=== PATIENT | male | born 1965 | race Caucasian/White ===

== ENCOUNTER 2023-03-25 15:51 | Emergency (ER) | payer BC, SELFPAY ==
[2023-03-25 15:59] VITALS: BP 148/106; PULSE 77; RESP 18; TEMP 36.9; O2SAT 95; BMI 24.4
[2023-03-25 16:00] VITALS: BP 148/106; PULSE 75; RESP 18; TEMP 36.9; O2SAT 95
--- OUTSIDE RECORDS SUMMARY | 2023-03-25 16:35 | XMS_ITS | Referral Summary ---
Author Name Unknown Organization [facility] Address [address] [place] [address] Care Team Providers Care Director Inpatient Headache Program Name Role Phone Unavailable Primary Care Provider Unavailabl e Allergies Active Allergy Reactions Criticality Noted Date Comments Meperidine Hcl 03/27/2002 Medications Medication Sig Dispensed Refills Start Date End Date Status SEREVENT 21 MCG/ACT IN AERS 2 puffs BID (Twice per day) for asthma 0 Active SERZONE 200 MG OR TABS 1 TABLET TWICE DAILY 0 Acti ve SOMA 350 MG OR TABS 1 TABLET 4 TIMES DAILY NEEDED 56 1 02/09/2003 Active Additional Information Patient not taking.Reported on 02/19/2019 VICODIN 5-500 MG OR TABS 1 TABLET EVERY 4 TO 6 HOURS NEEDED 28 0 04/02/2003 Active PERCOCET 5-325 MG OR TABS deny 0 0 05/15/2003 Active Additional Information Patient not taking.Reported on 02/19/2019 buPROPion (WELLBUTRIN XL) 300 MG 24 hr tablet Take 300 mg by mouth every morning 0 Active DULoxetine (CYMBALTA) 20 MG capsule Take 20 mg by mouth 2 times daily 0 Active Active Problems Problem Noted Date Diagnosed Date 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 Provider to review Other anxiety states 03/27/2002 Social History Tobacco Use Types Packs/Day Years Used Date Smoking Tobacco: Never Smokeless Tobacco: Never Alcohol Use Standard Drinks/Week Comments Yes 0 (1 standard drink = 0.6 oz pur e alcohol) moderate PHQ-2 Answer Date Recorded PHQ-2 Score 0 02/19/2019 Sex and Gender Information Value Date Recorded Sex Assigned at Not on file Gender Identity Not on file Sexual Orientation Not on file Last Filed Vital Signs Vital Sign Reading Time Taken Comments Blood Pressure 122/88 04/02/2003 2:30 PM AIRPLANE AND ENGINE INSPECTOR Pulse 88 04/02/2003 2:30 PM AIRPLANE AND ENGINE INSPECTOR Temperature - - Respiratory Rate 18 04/02/2003 2:30 PM AIRPLANE AND ENGINE INSPECTOR Oxygen Saturation - - Inhaled Oxygen Concentration - - Weight 83.5 kg (184 lb) 02/19/2019 8:10 AM AIRPLANE AND ENGINE INSPECTOR Height 182.9 cm (6') 02/19/2019 8:10 AM AIRPLANE AND ENGINE INSPECTOR Body Mass Index 24.95 02/19/2019 8:10 AM AIRPLANE AND ENGINE INSPECTOR Plan of Treatment Not on file
--- OUTSIDE RECORDS SUMMARY | 2023-03-25 16:35 | XMS_ITS | Clinical Summary ---
Author Name Unknown Organization [facility] Address [address] [place] [address] Care Team Providers Care Olericulturist Name Role Phone Unassigned, Provider Primary Care Provider Unava ilable Source Comments You are receiving this document as you are listed as the primary care provider,follow-up provider, or the patient has been referred to you for consultation.This is in compliance with the Medicare and[facility] E[facility]centive [facility],which states Providers who transition their patient to another setting of careor provider of care or refers their patient to another provider of care shouldprovide summary care record for each transition of care or referral. [facility] Allergies No known active allergies Medications No known medications Active Problems No known active problems Immunizations Name Administration Dates Next Due Tdap 03/28/2018 Social History Tobacco Use Types Packs/Day Years Used Date Smoking Tobacco: Never Smokeless Tobacco: Never Sex and Gender Information Value Date Recorded Sex Assigned at Not on file Gender Identity Not on file Sexual Orientation Not on file Last Filed Vital Signs Vital Sign Reading Time Taken Comments Blood Pressure 156/95 03/28/2018 10:26 AM RAIL EXPRESS CLERK Pulse 64 03/28/2018 10:26 AM RAIL EXPRESS CLERK Temperature 36.8 ??C (98.2 ??F) 03/28/2018 10:[address] Respiratory Rate 16 03/28/2018 10:26 AM RAIL EXPRESS CLERK Oxygen Saturation 98% 03/28/2018 10:26 AM RAIL EXPRESS CLERK Inhaled Oxygen Concentration - - Weight - - Height - - Body Mass Index - - Plan of Treatment Health Maintenance Due Date Last Done Comments Colon Cancer Screening Plan Due 1967 Hep C Screening (Preventive Services) 1967 HepB (1) 1967 PSA Screening Discussion 1967 COVID-19 Vaccine (#1) 03/08/1968 HIV Screening (Preventive Services) 1983 Adult Preventive Visit 09/06/1985 Cholesterol 09/06/2002 Zoster/Shingles (1 of 2) 09/06/2017 Influenza (#1) 2022 DTaP/Tdap/Td (2 - Tdap) 03/28/2028 03/28/2018 HepA Aged Out No longer eligi ble based on patient's age to complete this topic Hib Aged Out No longer eligi ble based on patient's age to complete this topic IPV (Polio) Aged Out No longer eligi ble based on patient's age to complete this topic MCV4 Aged Out No longer eligi ble based on patient's age to complete this topic Pneumococcal Aged Out No longer eligi ble based on patient's age to complete this topic Care Teams Olericulturist Relationship Specialty Start Date End Date Unassigned, Provider [address] [place] [address] PCP - General 05/13/00
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
--- OUTSIDE RECORDS SUMMARY | 2023-03-25 16:35 | XMS_ITS | Clinical Summary ---
Author Name Unknown Organization [facility] Address [address] [place] [address]. [place] [address] Care Team Providers Care Regional Intermodal Truck Driver Name Role Phone Unavailable Primary Care Provider [...] Provider to review Other anxiety states 03/27/2002 Family History Medical History Relation Comments Anxiety Disorder Father Cancer Father Prostate Dementia Father Cancer Mother Breast Relation Status Comments Brother Alive Daughter Alive Father Alive Maternal Grandfather Alive Maternal Grandmother Alive Mother Alive Paternal Grandfather Alive Paternal Grandmother Alive Sister Alive Son Alive Social History Tobacco Use Types Packs/Day Years [...] Comments Blood Pressure 122/88 04/02/2003 2:30 PM BANQUET MANAGER Pulse 88 04/02/2003 2:30 PM BANQUET MANAGER Temperature - - Respiratory Rate 18 04/02/2003 2:30 PM BANQUET MANAGER Oxygen Saturation - - Inhaled Oxygen Concentration - - Weight 83.5 kg (184 lb) 02/19/2019 8:10 AM BANQUET MANAGER Height 182.9 cm (6') 02/19/2019 8:10 AM BANQUET MANAGER Body Mass Index 24.95 02/19/2019 8:10 AM BANQUET MANAGER Plan of Treatment Not on file
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
[2023-03-25] MEDS: TETANUS/DIPHTH/PERTUSSIS 0.5 ML SYRINGE IM (17:01)
[2023-03-25] MEDS: lidocaine HCL 2 % MULTIDOSE 20 ML VIAL INJECTION (17:05)
[2023-03-25 17:17] VITALS: BP 129/98; PULSE 88; RESP 16; TEMP 37
== END 2023-03-25 17:10 | disposition home or self-care (01) ==
PROVIDERS: Emergency Provider Family Medicine; PCP Family Medicine
DX: S61.211A Laceration without foreign body of left index finger without damage to nail, initial encounter (principal); W26.0XXA Contact with knife, initial encounter; Z23 Encounter for immunization
CPT/HCPCS: 12001; 90471; 90715; 99283; 99284

== ENCOUNTER 2023-09-10 15:44 | Outpatient (CLI) | payer BC, SELFPAY ==
--- OUTSIDE RECORDS SUMMARY | 2023-09-10 15:46 | XMS_ITS | Clinical Summary ---
Author Organization [facility] Address [address] [place] [address]. [place] [address] Care Team Providers Care Rodbuster Name Role Phone Unavailable Primary Care Provider Unavailabl e Allergies Active Allergy Reactions Criticality Noted Date Comments Meperidine Hcl 03/27/2002 Medications Medication Sig Dispensed Refills Start Date End Date Status SEREVENT 21 MCG/ACT IN AERS 2 puffs BID (Twice per day) for asthma Active SERZONE 200 MG OR TABS 1 TABLET TWICE DAILY Acti ve SOMA 350 MG OR TABS [...] Take 300 mg by mouth every morning Active DULoxetine (CYMBALTA) 20 MG capsule Take 20 mg by mouth 2 times daily Active Active Problems Problem Noted Date Diagnosed [...] Comments Blood Pressure 122/88 04/02/2003 2:30 PM HAIRSPRING SETTER Pulse 88 04/02/2003 2:30 PM HAIRSPRING SETTER Temperature - - Respiratory Rate 18 04/02/2003 2:30 PM HAIRSPRING SETTER Oxygen Saturation - - Inhaled Oxygen Concentration - - Weight 83.5 kg (184 lb) 02/19/2019 8:10 AM HAIRSPRING SETTER Height 182.9 cm (6') 02/19/2019 8:10 AM HAIRSPRING SETTER Body Mass Index 24.95 02/19/2019 8:10 AM HAIRSPRING SETTER Plan of Treatment Not on file
--- OUTSIDE RECORDS SUMMARY | 2023-09-10 15:46 | XMS_ITS | Clinical Summary ---
Author Organization [facility] Address [address] [place] [address] Care Team Providers Care Prick Stitcher Name Role Phone Unassigned, Provider Primary Care Provider Unava ilable Source Comments You are receiving this document as you are listed as the primary care provider,follow-up provider, or the patient has been referred to you for consultation.This is in compliance with the Medicare and[facility] EHR Incentive Program,which states Providers who transition [...] Comments Blood Pressure 156/95 03/28/2018 10:26 AM INSULATION CUTTER Pulse 64 03/28/2018 10:26 AM INSULATION CUTTER Temperature 36.8 ??C (98.2 ??F) 03/28/2018 10:[address] Respiratory Rate 16 03/28/2018 10:26 AM INSULATION CUTTER Oxygen Saturation 98% 03/28/2018 10:26 AM INSULATION CUTTER Inhaled Oxygen Concentration - - Weight - - Height - - Body Mass Index - - Plan of Treatment Health Maintenance Due Date Last Done Comments Colon Cancer Screening Plan Due 1967 Hep C Screening (Preventive Services) 1967 PSA Screening Discussion 1967 HIV Screening (Preventive Services) 1983 Adult Preventive Visit 09/06/1985 HepB (1) 09/06/1986 Cholesterol 09/06/2002 Zoster/Shingles (1 of 2) 09/06/2017 COVID-19 Vaccine (1 - 2022-2 4 season) 2022 Influenza (#1) 2023 DTaP/Tdap/Td (2 - Tdap) 03/28/2028 03/28/2018 HepA [...] age to complete this topic Care Teams Prick Stitcher Relationship Specialty Start Date End Date Unassigned, Provider [address] [place] [address] PCP - General 05/13/00
--- OUTSIDE RECORDS SUMMARY | 2023-09-10 15:46 | XMS_ITS | Referral Summary ---
Author Organization [facility] Address [address] [place] [address]. [place] [address] Care Team Providers Care Traffic Control Signaler Name Role Phone Unavailable Primary Care Provider [...] Comments Blood Pressure 122/88 04/02/2003 2:30 PM PIPE JEEPER Pulse 88 04/02/2003 2:30 PM PIPE JEEPER Temperature - - Respiratory Rate 18 04/02/2003 2:30 PM PIPE JEEPER Oxygen Saturation - - Inhaled Oxygen Concentration - - Weight 83.5 kg (184 lb) 02/19/2019 8:10 AM PIPE JEEPER Height 182.9 cm (6') 02/19/2019 8:10 AM PIPE JEEPER Body Mass Index 24.95 02/19/2019 8:10 AM PIPE JEEPER Plan of Treatment Not on file
[2023-09-10 16:51] LABS: Mononuclear WBC Body Fluid* 49 %; Polynuclear WBC Body Fluid* 51 %; RBC, Body Fluid* 890000 Cells/uL; WBC, Body Fluid* 938 Cells/uL
[2023-09-10 16:52] LABS: BF Clarity* Cloudy; BF Color Grossly Bloody; BF Total Volume* 1.5
== END 2023-09-10 15:45 | disposition home or self-care (01) ==
PROVIDERS: PCP Family Medicine; Visit Provider Internal Medicine
DX: M70.22 Olecranon bursitis, left elbow (principal)
CPT/HCPCS: 87070; 89051

== ENCOUNTER 2023-09-17 08:20 | Outpatient (CLI) | payer BC, SELFPAY ==
--- OUTSIDE RECORDS SUMMARY | 2023-09-17 15:25 | XMS_ITS | Clinical Summary ---
Author Organization [facility] Address [address], [place] [address] Care Team Providers Care Etymology Teacher Name Role Phone Unassigned, Provider Primary Care Provider Unava ilable Source Comments You are receiving this document as you are listed as the primary care provider,follow-up provider, or the patient has been referred to you for consultation.This is in compliance with the Medicare and[facility]centive [facility],which states Providers who [...] Comments Blood Pressure 156/95 03/28/2018 10:26 AM INSURANCE WRITER Pulse 64 03/28/2018 10:26 AM INSURANCE WRITER Temperature 36.8 ??C (98.2 ??F) 03/28/2018 10:[address] Respiratory Rate 16 03/28/2018 10:26 AM INSURANCE WRITER Oxygen Saturation 98% 03/28/2018 10:26 AM INSURANCE WRITER Inhaled Oxygen Concentration - - Weight - [...] age to complete this topic Care Teams Etymology Teacher Relationship Specialty Start Date End Date Unassigned, Provider [address] [place] [address] PCP - General 05/13/00
--- OUTSIDE RECORDS SUMMARY | 2023-09-17 15:25 | XMS_ITS | Referral Summary ---
Author Organization [facility] Address [address] [place] [address]. [place] [address] Care Team Providers Care Locomotive Repairer Diesel Name Role Phone Unavailable Primary Care Provider [...] Comments Blood Pressure 122/88 04/02/2003 2:30 PM LEARNING DISABLED TEACHER Pulse 88 04/02/2003 2:30 PM LEARNING DISABLED TEACHER Temperature - - Respiratory Rate 18 04/02/2003 2:30 PM LEARNING DISABLED TEACHER Oxygen Saturation - - Inhaled Oxygen Concentration - - Weight 83.5 kg (184 lb) 02/19/2019 8:10 AM LEARNING DISABLED TEACHER Height 182.9 cm (6') 02/19/2019 8:10 AM LEARNING DISABLED TEACHER Body Mass Index 24.95 02/19/2019 8:10 AM LEARNING DISABLED TEACHER Plan of Treatment Not on file
--- OUTSIDE RECORDS SUMMARY | 2023-09-17 15:25 | XMS_ITS | Clinical Summary ---
Author Organization [facility] Address [address] [place] [address]. [place] [address] Care Team Providers Care Sleep Lab Technologist Name Role Phone Unavailable Primary Care Provider [...] Comments Blood Pressure 122/88 04/02/2003 2:30 PM GEAR CUTTING MACHINE SET UP OPERATOR Pulse 88 04/02/2003 2:30 PM GEAR CUTTING MACHINE SET UP OPERATOR Temperature - - Respiratory Rate 18 04/02/2003 2:30 PM GEAR CUTTING MACHINE SET UP OPERATOR Oxygen Saturation - - Inhaled Oxygen Concentration - - Weight 83.5 kg (184 lb) 02/19/2019 8:10 AM GEAR CUTTING MACHINE SET UP OPERATOR Height 182.9 cm (6') 02/19/2019 8:10 AM GEAR CUTTING MACHINE SET UP OPERATOR Body Mass Index 24.95 02/19/2019 8:10 AM GEAR CUTTING MACHINE SET UP OPERATOR Plan of Treatment Not on file
== END 2023-09-17 08:21 | disposition home or self-care (01) ==
LOC: NFLDREF 15:22
PROVIDERS: PCP Family Medicine; Referring Provider Family Medicine; Visit Provider Family Medicine
DX: Z13.220 Encounter for screening for lipoid disorders (principal); Z12.5 Encounter for screening for malignant neoplasm of prostate; Z13.1 Encounter for screening for diabetes mellitus
CPT/HCPCS: 80061; 82947; G0103

== ENCOUNTER 2023-10-29 19:22 | Outpatient (CLI) | payer BC, SELFPAY ==
--- OUTSIDE RECORDS SUMMARY | 2023-10-29 19:25 | XMS_ITS | Referral Summary ---
Author Organization [facility] Address [address] [place] [address]. [place] [address] Care Team Providers Care Paper Bag Press Operator Name Role Phone Unavailable Primary Care Provider [...] Comments Blood Pressure 122/88 04/02/2003 2:30 PM SUPERVISOR DELIVERY DEPARTMENT Pulse 88 04/02/2003 2:30 PM SUPERVISOR DELIVERY DEPARTMENT Temperature - - Respiratory Rate 18 04/02/2003 2:30 PM SUPERVISOR DELIVERY DEPARTMENT Oxygen Saturation - - Inhaled Oxygen Concentration - - Weight 83.5 kg (184 lb) 02/19/2019 8:10 AM SUPERVISOR DELIVERY DEPARTMENT Height 182.9 cm (6') 02/19/2019 8:10 AM SUPERVISOR DELIVERY DEPARTMENT Body Mass Index 24.95 02/19/2019 8:10 AM SUPERVISOR DELIVERY DEPARTMENT Plan of Treatment Not on file
--- OUTSIDE RECORDS SUMMARY | 2023-10-29 19:25 | XMS_ITS | Clinical Summary ---
Author Organization [facility] Address [address] [place] [address]. [place] [address] Care Team Providers Care Security Police Officer Name Role Phone Unavailable Primary Care Provider [...] Comments Blood Pressure 122/88 04/02/2003 2:30 PM LICENSED MASSAGE THERAPIST Pulse 88 04/02/2003 2:30 PM LICENSED MASSAGE THERAPIST Temperature - - Respiratory Rate 18 04/02/2003 2:30 PM LICENSED MASSAGE THERAPIST Oxygen Saturation - - Inhaled Oxygen Concentration - - Weight 83.5 kg (184 lb) 02/19/2019 8:10 AM LICENSED MASSAGE THERAPIST Height 182.9 cm (6') 02/19/2019 8:10 AM LICENSED MASSAGE THERAPIST Body Mass Index 24.95 02/19/2019 8:10 AM LICENSED MASSAGE THERAPIST Plan of Treatment Not on file
--- OUTSIDE RECORDS SUMMARY | 2023-10-29 19:25 | XMS_ITS | Clinical Summary ---
Author Organization [facility] Address [address], [place] [address] Care Team Providers Care Soft Crab Shedder Name Role Phone Unassigned, Provider Primary Care Provider Unava ilable Source Comments You are receiving this document as you are listed as the primary care provider,follow-up provider, or the patient has been referred to you for consultation.This is in compliance with the Medicare and[facility] Incentive Program,which states Providers who [...] Comments Blood Pressure 156/95 03/28/2018 10:26 AM CLEANING PROFESSIONAL Pulse 64 03/28/2018 10:26 AM CLEANING PROFESSIONAL Temperature 36.8 ??C (98.2 ??F) 03/28/2018 10:[address] Respiratory Rate 16 03/28/2018 10:26 AM CLEANING PROFESSIONAL Oxygen Saturation 98% 03/28/2018 10:26 AM CLEANING PROFESSIONAL Inhaled Oxygen Concentration - - Weight - [...] age to complete this topic Care Teams Soft Crab Shedder Relationship Specialty Start Date End Date Unassigned, Provider [address] [place] [id number] PCP - General 05/13/00
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
--- NOTE | 2023-11-13 11:30 | W.PM.SLEEP ---
Sleep Study Details Details Interpreting Provider: Kely Date of Sleep Study: 10/29/23 Sleep Study Details: STUDY TYPE:? Home unattended ? BMI:? 25.4 ORDERING PROVIDER:? Kely INDICATION:? Concerns about sleep apnea ? SLEEP SUMMARY:? 555 minutes monitored RESPIRATORY SUMMARY:? AHI 25.4, supine 38.5, right lateral 10.3 Low oxygen 82 3.5% of study oxygen less than 90% Snoring 61.1% PERIODIC LIMB MOVEMENTS OF SLEEP:? Not recorded CARDIAC:? Range 50-100, mean 63.7 beats per minute IMPRESSION:? Moderate obstructive sleep apnea RECOMMENDATION: Treatment options include CPAP or dental appliance. CPAP is favored.
== END 2023-10-29 19:23 | disposition home or self-care (01) ==
LOC: SLEEP 19:23
PROVIDERS: PCP Family Medicine; Visit Provider Otolaryngology
DX: G47.33 Obstructive sleep apnea (adult) (pediatric) (principal)
CPT/HCPCS: 95806

== ENCOUNTER 2024-03-04 12:25 | Emergency (ER) | payer BC, SELFPAY ==
[2024-03-04 12:29] VITALS: BP 152/84; PULSE 66; RESP 14; TEMP 36.2; O2SAT 97; BMI 24.4
--- NOTE | 2024-03-04 12:54 | ED_ITS ---
HPI - Wound/Laceration General Chief Complaint: Laceration/Wound Stated Complaint: Lac on left thumb Time Seen by Provider: 03/04/24 12:28 History of Present Illness HPI narrative: This 58-year-old male comes in with a injury to his left thumb. He was using a knife and working on food when he accidentally injured the distal portion of his left thumb. He has a small avulsion injury with a flap of skin over the tip of his left thumb. There is no active bleeding. His tetanus was updated a year ago. Related Data Home Medications ?Medication ?Instructions ?Recorded ?Confirmed bupropion HCl 150 mg 24 hr tablet, 150 mg PO QAM 09/10/23 03/04/24 extended release (Wellbutrin XL) duloxetine 30 mg capsule,delayed 30 mg PO QDAY 09/10/23 03/04/24 release Allergies Allergy/AdvReac Type Severity Reaction Status Date / Time No Known Drug Allergies Allergy Verified 03/04/24 12:29 Review of Systems Status of ROS: Reports: 10 or more systems reviewed and unremarkable except as noted in History and below Narrative: Constitutional: No fevers, no weight gain or loss. Eyes: No discharge. No vision changes. HENT: No congestion, no sore throat, no ear pain. Cardiovascular: No chest pain, no palpitations. Respiratory: No shortness of breath, no wheezes, no cough. Gastrointestinal: No abdominal pain, no vomiting, no diarrhea. Genitourinary: No dysuria, no hematuria. Musculoskeletal: Normal range of motion. Skin: No rashes, no pruritis. Neurological: No dizziness, weakness, sensory change, speech change. Endo/Heme/Allergies: No bruising or bleeding. No polydipsia. Pysch: no suicidality, no anxiety, no insomnia. All other systems reviewed and are negative. [facility] Medical History (Updated 03/04/24 @ 12:58 by Matt John MD) Hearing loss ?H91.90 - Unspecified hearing loss, unspecified ear (ICD-10) Olecranon bursitis (09/2023) ?M70.20 - Olecranon bursitis, unspecified elbow (ICD-10) Social History Smoking Status: Never smoker How often do you have a drink containing alcohol: never AUDIT-C Alcohol total score: 0 Non-prescribed substance use: marijuana (any form) service: No Exam Narrative: Exam Narrative: Constitutional: Well-developed, well-nourished, no acute distress. HEENT: Normocephalic, atraumatic. Neck: Normal range of motion. Nontender. Supple. Heart: Intact distal pulses. Lungs: No chest discomfort. No wheezes, rhonchi, or rales. Abdomen: Nontender. Back: Normal range of motion. Extremities: Normal range of motion. Avulsion injury of the tip of the left thumb measuring less than 1 cm in diameter. There is a skin flap that is ov erlying the wound. Skin: Intact. No rash. Warm. No erythema or pallor. Neurologic: No altered sensation. No weakness. Alert and oriented. Psychiatric: No suicidality. No anxiety or depression. No insomnia. Nursing notes and vitals signs are reviewed. Const: Vital Signs, click to edit/add: Vital Signs - 24 hr 03/04/24 12:29 Temperature 97.2 F L Pulse Rate [Pulse Oximeter] 66 Respiratory Rate 14 Blood Pressure [Ri ght Upper Arm] 152/84 H Pulse Oximetry 97 Oxygen Delivery Me thod Room Air Course Vital Signs Vital signs: Initial Vital Signs Temperature 97.2 F L 03/04/24 12:29 Temperature Source Temporal Artery Scan 03/04/24 12:29 Pulse Rate 66 03/04/24 12:29 Respiratory Rate 14 03/04/24 12:29 Blood Pressure 152/84 H 03/04/24 12:29 Blood Pressure Mean 106 H 03/04/24 12:29 Blood Pressure Position Sitting 03/04/24 12:29 Pulse Oximetry 97 03/04/24 12:29 Oxygen Delivery Method Room Air 03/04/24 12:29 Vital Signs Temperature 97.2 F L 03/04/24 12:29 Pulse Rate 66 03/04/24 12:29 Respiratory Rate 14 03/04/24 12:29 Blood Pressure 152/84 H 03/04/24 12:29 Pulse Oximetry 97 03/04/24 12:29 Oxygen Delivery Method Room Air 03/04/24 12:29 Temperature 97.2 F L 03/04/24 12:29 Pulse Rate 66 03/04/24 12:29 Respiratory Rate 14 12/24/24 12:29 Blood Pressure 152/84 H 03/04/24 12:29 Pulse Oximetry 97 03/04/24 12:29 Oxygen Delivery Method Room Air 03/04/24 12:29 MDM - Wound/Laceration MDM Narrative Medical decision making narrative: This patient has a wound to his left thumb. There is no active bleeding. There is a flap of skin that is overlying an avulsion type injury. The skin is offering some protection but is likely to slough off. I did apply Dermabond after cleansing the wound. Patient's tetanus status is up-to-date. Instructions were given regarding wound care. Discharge Plan Discharge Clinical Impression: Laceration Patient Disposition: Home, Self-Care Condition: Stable Additional Instructions: Keep wound clean and dry. Use [id number] medicines as needed and directed. Follow up with MD return if worsening. Prescriptions: No Action bupropion HCl [Wellbutrin XL] 150 mg tablet extended release 24 hr 150 mg PO QAM duloxetine 30 mg capsule,delayed release(DR/EC) 30 mg PO QDAY Follow Up/Referrals: Michael Meyers MD [Primary Care Provider] - Stand Alone Forms: [employer] Info Instructions
== END 2024-03-04 13:10 | disposition home or self-care (01) ==
LOC: ED 13:09
PROVIDERS: Emergency Provider Emergency Medicine Emergency Medical Services; PCP Family Medicine
DX: S61.012A Laceration without foreign body of left thumb without damage to nail, initial encounter (principal); W26.0XXA Contact with knife, initial encounter; Y93.G3 Activity, cooking and baking
CPT/HCPCS: 12001; 99282; 99284